=== PATIENT | female | born 1980 | race African-American/Black ===

== ENCOUNTER 2017-08-27 19:51 | Emergency (ER) | payer OTHER ==
[~2017-08-27] VITALS: Ht 172.7 cm; Wt 65.8 kg
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
[2017-08-27] MEDS ORDERED: IBUPROFEN 600 MG TABLET. PO ONE (20:45)
[2017-08-27] MEDS ORDERED: IBUPROFEN 800 MG TABLET. PO ONE ×2 (20:53→21:00)
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
[2017-08-27] MEDS ORDERED: HYDR-971 PO (21:51)
[2017-08-27 22:01] VITALS: BP 118/76
== END 2017-08-27 22:03 | disposition home or self-care (01) ==
LOC: ER 19:51
DX: S09.8XXA Other specified injuries of head, initial encounter (principal); S16.1XXA Strain of muscle, fascia and tendon at neck level, initial encounter; V49.59XA Passenger injured in collision with other motor vehicles in traffic accident, initial encounter; Y93.89 Activity, other specified; Y99.8 Other external cause status; Y92.488 Other paved roadways as the place of occurrence of the external cause
CPT/HCPCS: 70450; 72125; 99284-25